=== PATIENT | male | born 1995 | race Two or more races ===

== ENCOUNTER 2023-04-27 05:38 | Emergency (ER) | payer SELFPAY ==
[~2023-04-27] VITALS: Ht 175.3 cm; Wt 73.7 kg
[2023-04-27] MEDS ORDERED: CIPR1SUS8 OT (07:06)
[2023-04-27 07:30] VITALS: BP 140/83; PULSE 85; RESP 16; TEMP 99.8; O2SAT 97
[2023-04-27] MEDS ORDERED: cefTRIAXone SOD 1,000 MG VL IM ONE (07:30)
[2023-04-27] MEDS ORDERED: KETOROLAC TROMETH 30 MG/ML 1ML VIAL IM ONE (07:30)
[2023-04-27] MEDS ORDERED: LIDOCAINE 1% HCL (LOCAL ANESTH.) INJ 20ML MDV ONE (07:37)
== END 2023-04-27 08:04 | disposition home or self-care (01) ==
LOC: ER 05:38
DX: H60.91 Unspecified otitis externa, right ear (principal)
CPT/HCPCS: 96372; 99284; J0696; J1885; J2001